=== PATIENT | female | born 1985 | race Asian ===

== ENCOUNTER 2025-03-15 13:25 | Emergency (ER) | payer OTHER ==
[~2025-03-15] VITALS: Ht 154.9 cm; Wt 70.8 kg
[2025-03-15 13:36] VITALS: BP 131/78; TEMP 97.9
[2025-03-15 15:41] LABS: PREGNANCY TEST URINE QUAL NEGATIVE (NEGATIVE)
[2025-03-15 17:13] VITALS: O2SAT 100
== END 2025-03-15 17:14 | disposition home or self-care (01) ==
LOC: ER 13:30
DX: S06.0X0A Concussion without loss of consciousness, initial encounter (principal); R51.9 Headache, unspecified; I10 Essential (primary) hypertension; F17.200 Nicotine dependence, unspecified, uncomplicated; W22.8XXA Striking against or struck by other objects, initial encounter; Y93.89 Activity, other specified; Y92.89 Other specified places as the place of occurrence of the external cause; Y99.8 Other external cause status
CPT/HCPCS: 70450-TC; 84703-TC